=== PATIENT | female | born 1965 | race Caucasian/White ===

== ENCOUNTER 2019-05-30 13:40 | Emergency (ER) | payer BC ==
[2019-05-30 13:54] VITALS: BP 147/85
--- NOTE | 2019-05-30 14:02 | ED Physician Documentation ---
PD HPI FEMALE - Stated complaint Stated Complaint: FEM - Chief complaint Chief Complaint: UTI - History obtained from History obtained from: Patient - History of Present Illness Timing - onset: Yesterday (with some flank pain, and this monring with dysuria and frequency.) Timing - duration: Days (1/2) Timing - details: Abrupt onset, Still present Associated symptoms: Back pain (left side), Dysuria, Urinary frequency. No: Fever, Vaginal bleeding, Vaginal discharge Similar symptoms before: Diagnosis (UTI many years ago) Review of Systems Constitutional: denies: Fever, Chills, Myalgias GI: denies: Abdominal Pain, Nausea, Vomiting Skin: denies: Rash PD PAST MEDICAL HISTORY - Past Medical History Cardiovascular: None - Present Medications Home Medications: Ambulatory Orders Medication Instructions Recorded Confirmed Citalopram [CeleXA] 10 mg PO DAILY 05/30/19 05/30/19 Lisinopril 10 mg PO DAILY 05/30/19 05/30/19 Phenazopyridine HCl [Pyridium] 100 mg PO TID PRN #15 tablet 05/30/19 Sulfamethox/Trimeth 800/160 1 each PO BID #14 tablet 05/30/19 [Bactrim Ds 800/160] - Allergies Allergies/Adverse Reactions: Allergies Allergy/AdvReac Type Severity Reaction Status Date / Time No Known Drug Allergies Allergy Verified 05/30/19 13:54 PD ED PE NORMAL - Vitals Vital signs reviewed: Yes - General General: Alert and oriented X 3, No acute distress, Well developed/nourished - Abdomen Abdomen: Soft, Non tender - Back Back: No CVA TTP - Derm Derm: Normal color, Warm and dry Results - Vitals Vitals: Vital Signs - 24 hr 05/30/19 13:52 Temperature 36.1 C L Heart Rate 82 Respiratory 18 Rate Blood Pressure 147/85 H O2 Saturation 99 Oxygen O2 Source Room air - Labs Labs: Laboratory Tests 05/30/19 13:55 Urine Color LT RED Urine Clarity CLOUDY Urine pH 5.5 Ur Specific [place] 1.010 Urine Protein 100 H Urine Glucose (UA) NEGATIVE Urine Ketones NEGATIVE Urine Occult Blood LARGE H Urine Nitrite POSITIVE H Urine Bilirubin NEGATIVE Urine Urobilinogen 0.2 (NORMAL) Ur Leukocyte Esterase MODERATE H Urine RBC TNTC H Urine WBC >25 H Ur Squamous Epith Cells FEW Squamous Urine Bacteria Few Ur Microscopic Review INDICATED Urine Culture Comments INDICATED PD MEDICAL DECISION MAKING - ED course Complexity details: reviewed results, considered differential, d/w patient Departure - Departure Disposition: 01 Home, Self Care Clinical Impression: Urinary tract infection Qualifiers: Urinary tract infection type: acute cystitis Hematuria presence: without hematuria Qualified Code(s): N30.00 - Acute cystitis without hematuria Condition: Stable Record reviewed to determine appropriate education?: Yes Instructions: Urinary Tract Infecs Women Prescriptions: Phenazopyridine HCl [Pyridium] 100 mg PO TID PRN #15 tablet PRN Reason: Abdominal Pain Sulfamethox/Trimeth 800/160 [Bactrim Ds 800/160] 1 each PO BID #14 tablet Comments: Stay well-hydrated. Tylenol or ibuprofen for fevers or pains. Continue phenazopyridine as needed for urinary discomfort. Bactrim antibiotic twice daily for a week. We will do a urine culture and call you in couple of days if the culture shows at that time any resistance to the chosen antibiotic. Recheck if symptoms are worsening or he develop increased pain, repetitive vomiting, high fevers, other concerns. Discharge Date/Time: 05/30/19 14:32
[2019-05-30 14:09] LABS: BILIRUBIN,URINE NEGATIVE (NEGATIVE); GLUCOSE, URINE (UA) NEGATIVE (NEGATIVE); KETONES,URINE (UA) NEGATIVE (NEGATIVE); LEUKOCYTE ESTERASE, URINE MODERATE (NEGATIVE); NITRITE,URINE POSITIVE (NEGATIVE); OCCULT BLOOD,URINE LARGE (NEGATIVE); PH,URINE 5.5 PH (5.0-7.5); PROTEIN,URINE 100 mg/dL (NEGATIVE); UROBILINOGEN,URINE 0.2 (NORMAL) E.U./dL (NORMAL)
[2019-05-30 14:10] LABS: CLARITY,URINE CLOUDY (CLEAR)
[2019-05-30 14:21] LABS: BACTERIA,URINE Few /HPF (None Seen); RBC,URINE TNTC /HPF (0-5); SQUAMOUS EPITHELIAL CELL,UR FEW Squamous (<= Few)
[2019-05-30] MEDS ORDERED: SULFAMETH/TRIMETH DS 800/160 MG TABLET PO STA (14:26)
== END 2019-05-30 14:32 | disposition home or self-care (01) ==
LOC: ED 13:40
DX: N30.00 Acute cystitis without hematuria (principal)
CPT/HCPCS: 81001; 87086; 87181; 99283; A9270; 81003

== ENCOUNTER 2019-11-07 09:33 | Emergency (ER) | payer BC ==
--- NOTE | 2019-11-07 10:19 | XRAY Report ---
Reason: injury/pain Procedure Date: 11/07/2019 Accession Number: [id number] / [id number] Procedure: XR - Ankle 3 View RT CPT Code: Final Report FULL RESULT: EXAM: RIGHT ANKLE RADIOGRAPHY EXAM DATE: 11/07/2019 10:06 AM. CLINICAL HISTORY: Injury/pain. Lateral ankle swelling after rolling the ankle yesterday. COMPARISON: None. TECHNIQUE: 3 views. FINDINGS: Bones: Normal. No fractures or bone lesions. Joints: Small ankle joint effusion. No subluxation. Ankle mortise is symmetric. Soft Tissues: Mild lateral soft tissue swelling. IMPRESSION: No fracture or malalignment. RADIA
--- NOTE | 2019-11-07 11:10 | ED Physician Documentation ---
PD HPI LOWER EXT INJURY - Stated complaint Stated Complaint: RIGHT ANKLE PX - Chief complaint Chief Complaint: Trauma Ext - History obtained from History obtained from: Patient - History of Present Illness PD HPI LOW EXT INJURY LOCATION: Right, Ankle Type of injury: Fall, Twist Where injury occurred: Park Timing - onset: Yesterday Timing - details: Abrupt onset Improved by: Rest, Ice, Immobilization Worsened by: Moving, Other (Ambulating) Associated symptoms: Swelling, Discolored. No: Weakness, Numbness, Tingling Recently seen: Not recently seen - Additional information Additional information: There is a 54-year-old woman who was hiking yesterday and slipped in the mud inverting her right ankle. She walked out about 1/2 mile on it. This was around noon. She did fall to the ground but did not injure herself else thao. She is been able to tiptoe weight-bear today and she iced it and elevated it and took naproxen yesterday. Sitting here with her foot elevated she has 0 out of 10 pain. Has had no prior injury to that ankle. No numbness or tingling down into the foot. 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 Review of Systems Musculoskeletal: reports: Extremity pain, Joint pain, Extremity swelling, Joint swelling, Pain with weight bearing Neurologic: denies: Numbness PD PAST MEDICAL HISTORY - Past Medical History Cardiovascular: None Respiratory: Asthma - Past Surgical History Past Surgical History: Yes General: Cholecystectomy /LOGISTICS ASSISTANT: Hysterectomy - Present Medications Home Medications: Ambulatory Orders Medication Instructions Recorded Confirmed Citalopram [CeleXA] 10 mg PO DAILY 05/30/19 05/30/19 Phenazopyridine HCl [Pyridium] 100 mg PO TID PRN #15 tablet 05/30/19 Sulfamethox/Trimeth 800/160 1 each PO BID #14 tablet 05/30/19 [Bactrim Ds 800/160] lisinopriL [Lisinopril] 10 mg PO DAILY 05/30/19 05/30/19 - Allergies Allergies/Adverse Reactions: Allergies Allergy/AdvReac Type Severity Reaction Status Date / Time No Known Drug Allergies Allergy Verified 11/07/19 09:38 - Social History Does the pt smoke?: No Smoking Status: Never smoker Does the pt drink ETOH?: No Does the pt have substance abuse?: No - Immunizations Immunizations are current?: Yes PD ED PE NORMAL - Vitals Vital signs reviewed: Yes - General General: Alert and oriented X 3, No acute distress, Well developed/nourished - HEENT HEENT: Atraumatic - Extremities Extremities: Other (There is swelling of the right ankle and pain over the lateral malleolus. The ankle feels a little loose to stressing of the lateral ligaments. No pain over the base of the fifth metatarsal. She has a palpable dorsalis pedis pulse. She is able to wiggle her toes sensation is intact to light touch in the foot. No pain over the right fibular head.) - Neuro Neuro: Alert and oriented X 3, monumental stonemason 2-12 intact, No motor deficit, No sensory deficit, Normal speech Results - Vitals Vitals: Vital Signs - 24 hr 11/07/19 11/07/19 09:38 11:23 Temperature 36.5 C 36.8 C Heart Rate 66 75 Respiratory 18 16 Rate Blood Pressure 156/71 H 152/99 H O2 Saturation 98 98 Oxygen O2 Source Room air - Rads (name of study) R ankle Radiology: EMP read contemporaneously (neg fracture), See rad report PD MEDICAL DECISION MAKING - ED course Complexity details: reviewed results, d/w patient ED course: X-ray did not show any obvious fracture. Patient does have some apparent laxity of the collateral ligaments laterally. There is a negative drawer sign. She is placed in an air splint and on crutches with nonweightbearing. Follow-up with her primary care provider and she is given a note to be off work until she follows up. She declined any prescription for pain medication will continue to use naproxen and ice and elevate. Departure - Departure Disposition: 01 Home, Self Care Clinical Impression: Sprain of ankle Qualifiers: Encounter type: initial encounter Involved ligament of ankle: unspecified ligament Laterality: right Qualified Code(s): S93.401A - Sprain of unspecified ligament of right ankle, initial encounter Condition: Good Instructions: ED Sprain Ankle W X Ray Follow-Up: your,doctor [Other] Comments: Wear the air splint and use the crutches to remain nonweightbearing for the next 3 to 5 days. If she can put weight on it at that time she can ambulate but very minimal. To wear the air splint. Ice and elevate the ankle. Take the naproxen for pain. No work until cleared by your doctor. Forms: Activity restrictions Discharge Date/Time: 11/07/19 11:34
[2019-11-07 12:53] VITALS: BP 152/99
== END 2019-11-07 11:34 | disposition home or self-care (01) ==
LOC: ED 09:33
DX: S93.401A Sprain of unspecified ligament of right ankle, initial encounter (principal); X50.1XXA Overexertion from prolonged static or awkward postures, initial encounter; Y93.01 Activity, walking, marching and hiking; Y92.830 Public park as the place of occurrence of the external cause
CPT/HCPCS: 99282; 99283